=== PATIENT | male | born 1990 | race Caucasian/White ===

== ENCOUNTER 2023-11-04 10:07 | Day surgery (SDC) | payer BC ==
[2023-11-02 14:32] VITALS: BMI 29.2
[2023-11-04] MEDS ORDERED: EPINEPHrine 1 MG/ML VIAL ONE (11:20)
[2023-11-04] MEDS ORDERED: Oxymetazoline HCl 0.05% (30 ML BOT) ONE ×2 (11:21→11:22)
[2023-11-04] MEDS ORDERED: Bacitracin Zinc Ointment 30 gm TUBE ONE (11:21)
[2023-11-04] MEDS ORDERED: Lidocaine 1% (PF) 30 ML VIAL ONE (11:21)
[2023-11-04] MEDS ORDERED: Midazolam HCl 2 mg/2 ml Vial ONE (11:50)
[2023-11-04] MEDS ORDERED: fentaNYL PF 100 MCG/2 ML SYRINGE ONE ×2 (11:50→14:28)
[2023-11-04] MEDS ORDERED: PROPOFOL 40 ML ONE (11:50)
[2023-11-04] MEDS ORDERED: Dexamethasone 20 MG/5 ML VIAL ONE (11:56)
[2023-11-04] MEDS ORDERED: Lidocaine 1% PF 5 ML VIAL ONE (11:56)
[2023-11-04] MEDS ORDERED: Ondansetron PF 4 MG/2 ML Vial ONE (11:56)
[2023-11-04] MEDS ORDERED: Rocuronium Bromide 10 MG/ML (10ML VIAL) ONE (12:29)
[2023-11-04] MEDS ORDERED: SUGAMMADEX SODIUM 200 MG/2 ML VIAL ONE (13:02)
[2023-11-04] MEDS ORDERED: fentaNYL 50 mcg/mL 1 mL Vial ONE ×4 (13:06→15:03)
[2023-11-04] MEDS ORDERED: Hydrocodone-Acetamin 15 ML UDCUP ONE (15:34)
== END 2023-11-04 16:45 | disposition home or self-care (01) ==
LOC: SDC 10:07
PROVIDERS: ATTEND Specialist
PROC: 09BQ8ZZ Excision of Right Maxillary Sinus, Via Natural or Artificial Opening Endoscopic (ICD-10-PCS; principal; 2023-11-04)
PROC: 09TL8ZZ Resection of Nasal Turbinate, Via Natural or Artificial Opening Endoscopic (ICD-10-PCS; principal; 2023-11-04)
PROC: 09BU8ZZ Excision of Right Ethmoid Sinus, Via Natural or Artificial Opening Endoscopic (ICD-10-PCS; principal; 2023-11-04)
PROC: 8E09XBZ Computer Assisted Procedure of Head and Neck Region (ICD-10-PCS; principal; 2023-11-04)
PROC: 09BV8ZZ Excision of Left Ethmoid Sinus, Via Natural or Artificial Opening Endoscopic (ICD-10-PCS; principal; 2023-11-04)
PROC: 09BS8ZZ Excision of Right Frontal Sinus, Via Natural or Artificial Opening Endoscopic (ICD-10-PCS; principal; 2023-11-04)
PROC: 09BX8ZZ Excision of Left Sphenoid Sinus, Via Natural or Artificial Opening Endoscopic (ICD-10-PCS; principal; 2023-11-04)
PROC: 09BW8ZZ Excision of Right Sphenoid Sinus, Via Natural or Artificial Opening Endoscopic (ICD-10-PCS; principal; 2023-11-04)
PROC: 09SM4ZZ Reposition Nasal Septum, Percutaneous Endoscopic Approach (ICD-10-PCS; principal; 2023-11-04)
PROC: 09BR8ZZ Excision of Left Maxillary Sinus, Via Natural or Artificial Opening Endoscopic (ICD-10-PCS; principal; 2023-11-04)
PROC: 09BT8ZZ Excision of Left Frontal Sinus, Via Natural or Artificial Opening Endoscopic (ICD-10-PCS; principal; 2023-11-04)
DX: J34.2 Deviated nasal septum (principal); J32.4 Chronic pansinusitis; J34.3 Hypertrophy of nasal turbinates; M06.9 Rheumatoid arthritis, unspecified; F41.9 Anxiety disorder, unspecified; J30.1 Allergic rhinitis due to pollen; J30.81 Allergic rhinitis due to animal (cat) (dog) hair and dander; J30.89 Other allergic rhinitis; Z91.040 Latex allergy status; Z79.899 Other long term (current) drug therapy
CPT/HCPCS: 87070; 87076; 87077; 87186; 87205; 88305; J0171; J1100; J2001; J2250; J2405; J2704; J3010